=== PATIENT | male | born 1975 | race African-American/Black ===

== ENCOUNTER 2018-01-26 07:51 | Outpatient (CLI) | payer OTHER ==
--- NOTE | 2018-01-26 09:22 | Magnetic Resonance Report ---
MRI OF THE BRAIN WITHOUT CONTRAST: HISTORY: Dizziness PROCEDURE: Multiplanar, multisequence MR imaging of the brain without IV contrast was performed. FINDINGS: Minimal nonspecific chronic white matter changes are identified. Otherwise, the brain parenchyma signal intensity and its gomez white interface are within normal limits on all sequences. No evidence for acute ischemia, hemorrhage or mass. No chronic infarct or extra-axial fluid collection. The midline structures are central. The basal cisterns are patent. Normal ventricular size. The orbital cavities and sella turcica demonstrate no abnormality. Mild mucosal thickening is noted in the inferior maxillary sinuses and ethmoid sinuses. The mastoid air cells are well aerated IMPRESSION: Unremarkable non-enhanced MRI of the brain. Mild chronic ethmoid and maxillary sinusitis.
== END 2018-01-26 07:52 | disposition home or self-care (01) ==
LOC: MRI 07:51
PROVIDERS: ATTEND Otolaryngology
DX: J32.0 Chronic maxillary sinusitis (principal)
CPT/HCPCS: 70551

== ENCOUNTER 2018-09-29 14:00 | Emergency (ER) | payer OTHER ==
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
--- NOTE | 2018-09-29 14:59 | XRay Report ---
BILATERAL RIBS, 4 views: History: Pain. Routine views of the rib cage demonstrate normal mineralization with no significant contour abnormalities, fractures or destructive lesions. PA view of the chest demonstrates no underlying cardiopulmonary abnormalities, fluid or pneumothorax. IMPRESSION: Normal bilateral ribs.
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
[2018-09-29 17:16] VITALS: BP 162/101
== END 2018-09-29 17:15 | disposition home or self-care (01) ==
LOC: ED 14:00
DX: R07.89 Other chest pain (principal); Z87.891 Personal history of nicotine dependence; V89.2XXA Person injured in unspecified motor-vehicle accident, traffic, initial encounter; Y93.89 Activity, other specified; Y92.488 Other paved roadways as the place of occurrence of the external cause; Y99.8 Other external cause status
CPT/HCPCS: 71111; 99283